=== PATIENT | female | born 1965 | race African-American/Black ===

== ENCOUNTER 2018-07-29 06:35 | Inpatient (IN) | payer MEDICARE ==
--- NOTE | 2018-07-17 10:56 | HP ---
PREOPERATIVE HISTORY AND PHYSICAL: DATE OF ADMISSION/SURGERY: 07/29/18 DATE OF OFFICE VISIT: 07/16/18 ATTENDING PHYSICIAN: Dr. Rosina Daley. CHIEF COMPLAINT: Right hip pain. HISTORY OF PRESENT ILLNESS: Ms. Alston is a 52-year-old female with greater than 3 years of hip magy n. She failed conservative management due to end-stage osteoarthritis and has elected to proceed wit h a right total hip arthroplasty scheduled with Dr. Daley on 07/29/18. PAST MEDICAL HISTORY: Significant for heart murmur, hypertension, osteoarthritis, morbid obesity, de pression, and anxiety. PAST SURGICAL HISTORY: Cholecystectomy, hysterectomy, left shoulder arthroscopy. MEDICATIONS: 1. Centrum Silver daily. 2. Vitamin D daily. 3. Menopause Formula supplement daily. 4. Amlodipine 10 mg p.o. every day. 5. Lisinopril/hydrochlorothiazide 10/12.5 mg 1 p.o. daily. 6. Temazepam 30 mg p.o. q.h.s. p.r.n. at night. 7. Calcium antacid 500 mg p.o. as needed. 8. Naproxen sodium 500 mg p.o. as needed for pain. FAMILY HISTORY: Negative. SOCIAL HISTORY: The patient lives alone. She is currently unemployed. She is on disability seconda ry to her hip pain. She does not use tobacco or recreational drugs. She ambulates with a cane. She does not use alcohol. REVIEW OF SYSTEMS: Reviewed with the patient today, positive for hip pain, fatigue, seasonal allergi es, depression, and anxiety. INCOMPLETE DICTATION MARK MCCLAIN [id number]/[facility] #: [id number]
--- NOTE | 2018-07-17 11:21 | HP ---
Amended report to enter cosigning physician. PREOPERATIVE HISTORY AND PHYSICAL EXAMINATION: DATE OF ADMISSION: 07/29/18 DATE OF OFFICE VISIT: 07/16/18 ATTENDING PHYSICIAN: Dr. Rosina Daley* (dictated by MARK Multani). PROCEDURE: Right total hip arthroplasty. CHIEF COMPLAINT: Right hip pain. HISTORY OF PRESENT ILLNESS: Ms. Alston is a 53-year-old female who reports greater than 3 years of right hip pain. She has failed conservative management and has elected to proceed with a right total hip arthroplasty. Her plain films reveal advanced osteoarthritis. PAST MEDICAL HISTORY: Significant for heart murmur, hypertension, osteoarthritis, morbid obesity, depression, anxiety. PAST SURGICAL HISTORY: Cholecystectomy and hysterectomy as well as left shoulder arthroscopy. MEDICATIONS: 1. Centrum Silver p.o. daily. 2. Vitamin D daily. 3. Menopause Formula supplement daily. 4. Amlodipine 10 mg p.o. daily. 5. Lisinopril/hydrochlorothiazide 10/12.5 mg p.o. daily. 6. Temazepam 30 mg p.o. at bedtime p.r.n. 7. Antacid calcium tablets 500 mg p.r.n. GERD. 8. Naproxen sodium 500 mg p.o. b.i.d. as needed for pain. ALLERGIES: No known drug allergies. FAMILY HISTORY: None. SOCIAL HISTORY: The patient lives alone. She is currently unemployed. She states she is on disability due to her hip pain. She denies use of tobacco or recreational drug use. She ambulates with a cane. She rarely uses alcohol. REVIEW OF SYSTEMS: A 14 systems reviewed with the patient, positive for right hip pain, fatigue, seasonal allergies, depression, anxiety. PHYSICAL EXAMINATION GENERAL: She is well developed, well nourished; in no acute distress, alert and oriented x3. VITAL SIGNS: She is 5 feet 2 inches tall, 245 pounds, pulse 72, BP 130/80. HEENT: PERRLA. NECK: Supple. LUNGS: Clear to auscultation. HEART: Regular rate and rhythm. No murmur auscultated. ABDOMEN: Nontender and nondistended. Normoactive bowel sounds x4. NEUROLOGIC: Alert and oriented x3. MUSCULOSKELETAL: Right lower extremity reveals no open lesions or abrasions. She walks with an antalgic gait favoring the right hip. She has decreased internal and external rotation of the right hip. Her dorsalis pedis pulse is 2+ , full sensation. ASSESSMENT AND PLAN: Ms. Alston is a 53-year-old female with advanced osteoarthritis of the right hip. She has failed conservative management and has elected to proceed with right total hip arthroplasty. She is scheduled for surgery with Dr. Daley on 07/29/18. Risks and benefits of the surgery were discussed at today's visit and all of her questions were answered. She will follow up in roughly 2 weeks postoperatively. MARK MCCLAIN [id number]/[facility] #: [id number] CANDY
[~2018-07-29 06:35] MED LIST: Buffered Lidocaine 1% SYRIN* 1 ML/SYRINGE INTRADERM ONE; Dexamethasone IV* 4 MG/ML 1 ML (4 MG) IV SLOW PU ONE; Famotidine IV* 10 MG/ML 2 ML (20 mg) IV ONE; Gabapentin CAP(*) 300 MG PO ONE; Lactated Ringers 1000 ML Bag* 1,000 ML IV SCH; Tranexamic Acid 1,000 MG in NS 0.9% 50 ML* (outpatient use) IV SCH; celeCOXIB CAP* 200 MG PO ONE
--- OUTSIDE RECORDS SUMMARY | 2018-07-29 06:39 | XMS REPORT | Continuity of Care Document ---
:1965 External Reference #:[id number] Author Name Kiya Cifuentesecca Care Team Providers Name Role Phone Kamron Davila MD Primary Care Physician Unavailable Payers Date Identification Numbers Payment Provider Subscriber Policy Number: MEBRJPLF [employer] Medicare Carmen Jaquez PayID: [id number] [address] [place] [address] Effective: 2017 Policy Number: [employer] Carmen Jaquez [id number] Expires: 2018 PayID: [id number] [address] [address] [place] [address] Problems Active Problems Provider Date Localized, primary osteoarthritis of the pelvic Rosina Daley M.D. Onset: region and thigh Family History Date Family Member(s) Observation Comments General No Current Problems Social History Type Date Description Comments Sex Unknown Lives With Alone Occupation Unemployed ETOH Use Drinks 1 Alcoholic Beverage Per Week Tobacco Use Start: Unknown Patient has never smoked Smoking Status Reviewed: 07/16/18 Patient has never smoked Exercise Type/Frequency Exercises sporadically Allergies, Adverse Reactions, Alerts Description No Known Drug Allergies Medications Active Medications SIG Qnty Indications Ordering Provider Date Centrum Silver 1 by mouth every Unknown Tablets day Vitamin D 1 by mouth every Unknown (Cholecalciferol) day fall/winter 400Unit Capsules Menopause Formula Unknown Tablets Amlodipine Besylate 1 by mouth every Unknown 10mg day Tablets Lisinopril-Hydrochloro 1 by mouth every Unknown thiazide day 10-12.5mg Tablets Temazepam take one capsule Unknown 30mg Capsules by mouth at bedtime as needed maximum daily dose=1 capsule Antacid Calcium Unknown Regular Strength 500mg Chewtabs Naproxen Sodium ER take one /tablet Unknown 500mg daily by mouth as Tablets ER 24HR needed for pain, if pain is severe, you may take up to 2 pills daily for 3 days as needed History Medications Hydroxyzine HCL take 1 tab by mouth 3x Unknown - 07/15/2018 50mg Tablets daily for anxiety as needed Vital Signs Date Vital Result Comment 2018 12:59pm Height 62 inches 5'2" Weight 245.00 lb Heart Rate 72 /min BP Systolic 130 mmHg BP Diastolic 80 mmHg BMI (Body Mass Index) 44.8 kg/m2 07/02/2018 1:32pm Height 62 inches 5'2" Weight 243.00 lb Heart Rate 80 /min BP Systolic 122 mmHg BP Diastolic 78 mmHg Pain Level 6 BMI (Body Mass Index) 44.4 kg/m2 06/26/2017 11:22am Height 62 inches 5'2" Weight 245.00 lb Heart Rate 78 /min BP Systolic 130 mmHg BP Diastolic 80 mmHg Respiratory Rate 16 /min Body Temperature 97.4 F Pain Level 6 BMI (Body Mass Index) 44.8 kg/m2 Results Test Date Facility Test Result H/L Range Note CBC Auto Diff 2018 [facility] White Blood 6.7 10^3/uL N 3.5-10.[address] [place] [address] [phone] Red Blood Count 4.24 10^6/uL N 3.70-4.87 Hemoglobin 12.0 g/dL N 12.0-16.0 Hematocrit 37 % N 35-47 Mean Corpuscular Volume 87 fL N 80-97 Mean Corpuscular Hemoglobin 28 pg N 27-31 Mean Corpuscular HGB Conc 33 g/dL N 31-36 Red Cell Distribution Width 15 % N 10.5-15 Platelet Count 396 10^3/uL N 150-450 Mean Platelet Volume 7.8 fL N 7.4-10.4 Abs Neutrophils 2.9 10^3/uL N 1.5-7.7 Abs Lymphocytes 3.2 10^3/uL N 1.0-4.8 Abs Monocytes 0.4 10^3/uL N 0-0.8 Abs Eosinophils 0.1 10^3/uL N 0-0.6 Abs Basophils 0.0 10^3/uL N 0-0.2 Abs Nucleated RBC 0.0 10^3/uL Granulocyte % 44.1 % Lymphocyte % 48.1 % Monocyte % 6.5 % Eosinophil % 0.8 % Basophil % 0.5 % Nucleated Red Blood Cells % 0.1 Urinalysis Profile 2018 [facility] Urine Color Yellow [address] [place] [address] [phone] Urine Appearance Cloudy Urine Specific [place] 1.020 N 1.010-1.030 Urine pH 6.0 N 5-9 Urine Urobilinogen Negative Negative Urine Ketones Negative Negative Urine Protein Negative Negative Urine Leukocytes Negative Negative Urine Blood Negative Negative Urine Nitrite Negative Negative Urine Bilirubin Negative Negative Urine Glucose Negative Negative Inr/Protime 2018 [facility] Inr 1.01 N 0.82-1.09 1 [address] [place] [address] [phone] Laboratory test 2018 [facility] Partial 31.9 seconds N 26.0-36.3 finding [address] [facility] [place] [address] PTT [phone] Comp Metabolic 2018 [facility] Sodium 141 mmol/L N 135- 145 Panel [address] [place] [address] [phone] Potassium 4.1 mmol/L N 3.5-5.0 Chloride 107 mmol/L N 101-111 Co2 Carbon Dioxide 28 mmol/L N 22-32 Anion Gap 6 mmol/L N 2-11 Glucose 91 mg/dL N 70-100 Blood Urea Nitrogen 12 mg/dL N 6-24 Creatinine 0.93 mg/dL N 0.51-0.95 BUN/Creatinine Ratio 12.9 N 8-20 Calcium 9.2 mg/dL N 8.6-10.3 Total Protein 6.8 g/dL N 6.4-8.9 Albumin 4.1 g/dL N 3.2-5.2 Globulin 2.7 g/dL N 2-4 Albumin/Globulin Ratio 1.5 N 1-3 Total Bilirubin 0.20 mg/dL N 0.2-1.0 Alkaline Phosphatase 66 U/L N 34-104 Alt 16 U/L N 7-52 Ast 16 U/L N 13-39 Egfr Non- 62.6 >60 Egfr 75.7 >60 2 Type & Screen 2018 [facility] Antibody Screen NEGATIVE [address] [place] [address] [phone] Patient Blood Type O Positive Urine Culture And 2018 [facility] Urine Culture SEE RESULT [address] [place] [address] [phone] 1 Standard intensity warfarin therapeutic range: 2.0-3.0 High intensity warfarin therapeutic range: 2.5-3.5 2 Because ethnic data is not always readily available, this report includes an eGFR for both -Americans and non- Americans. The National Kidney Disease Education Program (NKDEP) does not endorse the use of the MDRD equation for patients that are not between the ages of 18 and 70, are , have extremes of body size, muscle mass, or nutritional status, or are non- or non-. According to the National Kidney Foundation, irrespective of diagnosis, the stage of the disease is based on the level of kidney function: Stage Description GFR(mL/min/1.73 m(2)) 1 Kidney damage with normal or decreased GFR 90 2 Kidney damage with mild decrease in GFR 60-89 3 Moderate decrease in GFR 30-59 4 Severe decrease in GFR 15-29 5 Kidney failure <15 (or dialysis) 3 SEE RESULT BELOW Name: CARMEN JAQUEZ : [address]: Rosina Daley MD Acct: [id number] Unit: [id number] AGE: 53 Location: [facility] Re07/16/18 SEX: F Status: REG REF SPEC: [id number] ISAÍAS: 07/16/[address] [facility] [address]: Rosina Daley MD REQ: [id number] RECD: 07/16/18 STATUS: COMP _ SOURCE: URINE SPDESC: ORDERED: Urine Culture QUERIES: Urine Source: Clean Catch Procedure Result Reported Site Urine Culture Final 07/18/18- 0802 ML No growth of clinically significant organisms * ML - Main Lab . END OF REPORT DEPARTMENT OF PATHOLOGY, [address] [place] [address] Navin Disla M.D. Director [facility] # [id number] Encounters Type Date Location Provider Dx Diagnosis Office Visit 07/02/2018 [facility] Rosina Daley, M16.11 Unilateral primary 1:45p [facility] osteoarthritis, right hip Z68.41 Body mass index (BMI) 40.0-44.9, adult E66.01 Morbid (severe) obesity due to excess calories M25.551 Pain in right hip Office Visit 06/26/2017 Alberto Almaguer M16.11 Unilateral primary 11:00a [facility] osteoarthritis, right [facility] hip E66.01 Morbid (severe) obesity due to excess calories M25.551 Pain in right hip Plan of Treatment Future Appointment(s):08/09/2018 2:30 pm - Rosina Daley M.D. at [facility]07/29/2018 1:30 pm - Jeevan Perez PA-C at [facility]07/29/2018 1:30 pm - MARK Pennington at [facility]07/29/2018 1:30 pm - Rosina Daley M.D. at [facility]
--- OUTSIDE RECORDS SUMMARY | 2018-07-29 06:39 | XMS REPORT | Continuity of Care Document ---
:1965 External Reference #:[id number] Author Name MARK Pennington Address [address], [place] [address] Care Team Providers Name Role Phone Kamron Davila MD Primary Care Physician Unavailable Payers Date Identification Numbers Payment Provider Subscriber Policy Number: MEBRJPLF [employer] Medicare Carmen Jaquez PayID: [id number] [address] [place] [address] Effective: 2017 Policy Number: [employer] Carmen Jaquez [id number] Expires: 2018 PayID: [id number] [address] [address] [place] [address] Problems Active Problems Provider Date Localized, primary [...] H/L Range Note CBC Auto Diff 2018 [facility] White Blood 6.7 10^3/uL N 3.5-10.[address] [place] [address] [phone] Red Blood Count 4.24 10^6/uL N 3.70-4.87 [...] Blood Cells % 0.1 Urinalysis Profile 2018 [facility] Urine Color Yellow [address] [place] [address] [phone] Urine Appearance Cloudy Urine Specific [place] 1.020 N 1.010-1.030 Urine pH 6.0 N 5-9 Urine Urobilinogen Negative Negative Urine Ketones Negative Negative Urine Protein Negative Negative Urine Leukocytes Negative Negative Urine Blood Negative Negative Urine Nitrite Negative Negative Urine Bilirubin Negative Negative Urine Glucose Negative Negative Inr/Protime 2018 [facility] Inr 1.01 N 0.82-1.09 1 [address] [place] [address] [phone] Laboratory test 2018 [facility] Partial 31.9 seconds N 26.0-36.3 finding 101 [facility] [place] [address] PTT [phone] Comp Metabolic 2018 [facility] Sodium 141 mmol/L N 135- 145 Panel [address] [place] [address] [phone] Potassium 4.1 mmol/L N 3.5-5.0 Chloride 107 [...] 75.7 >60 2 Type & Screen 2018 [facility] Antibody Screen NEGATIVE [address] [place] [address] [phone] Patient Blood Type O Positive Urine Culture And 2018 [facility] Urine Culture SEE RESULT [address] [place] [address] [phone] 1 Standard intensity warfarin therapeutic range: 2.0-3.0 [...] [address]: Rosina Daley MD Acct: [id number] Unit: [id number] AGE: 53 Location: [facility] Re07/16/18 SEX: F Status: REG REF SPEC: [id number] ISAÍAS: 07/16/18 [facility] DR: Rosina Daley MD REQ: [id number] RECD: 07/16/18 STATUS: COMP _ SOURCE: URINE SPDESC: ORDERED: Urine Culture QUERIES: Urine Source: Clean Catch Procedure Result Reported Site Urine Culture Final 07/18/18- 0802 ML No growth of clinically significant organisms * ML - Main Lab . END OF REPORT DEPARTMENT OF PATHOLOGY, [address] [place] [address] Navin Disla M.D. Director [facility] # [id number] Encounters Type Date Location Provider Dx Diagnosis Office Visit 07/02/2018 [facility] Robyn Croft6.11 Unilateral primary 1:45p [facility] osteoarthritis, right hip Z68.41 Body mass index (BMI) 40.0-44.9, adult E66.01 Morbid (severe) obesity due to excess calories M25.551 Pain in right hip Office Visit 06/26/2017 [facility] Rosina M16.11 Unilateral primary 11:00a [facility] osteoarthritis, right [facility] hip E66.01 Morbid (severe) obesity due to excess calories M25.551 Pain in right hip Plan of Treatment Future Appointment(s):08/09/2018 2:30 pm - Rosina Daley M.D. at [facility]07/29/2018 1:30 pm - Jeevan Perez PA-C at [facility]..07/29/2018 1:30 pm - MARK Pennington at [facility]07/29/2018 1:30 pm - Rosina Daley M.D. at [facility]07/16/2018 - Rosina Daley M.D.M16.11 Unilateral primary osteoarthritis, right hipFollow up:Follow up: 10-14 days knrezaP71.551 Pain in right hip
--- OUTSIDE RECORDS SUMMARY | 2018-07-29 06:39 | XMS REPORT | Continuity of Care Document ---
:1965 External Reference #:[id number] Author Name Kamron Davila MD Address [address] [facility] [place] [address] Care Team Providers Name Role Phone Kamron Davila MD Care Team Information Project Design Engineer Unavailable Kamron Davila MD Primary Care Physician Unavailable Payers Date Identification Numbers Payment Provider Subscriber Effective: 2018 Policy Number: MEBRJPLF [employer] Medicare Ppo Carmen Alston Group Number: [id number] [id number] PayID: [id number] [place] [address] Effective: 2018 Policy Number: [id number] Medicare [place] Carmen Alston Expires: 2018 PayID: [id number] [address] [place] [address] Advance Directives Description No Information Available Problems Active Problems Provider Date Localized, primary osteoarthritis of the Kamron Davila MD Onset: pelvic region and thigh Family History Date Family Member(s) Observation Comments Mother No Current Problems Social History Type Date Description Comments Sex Unknown Tobacco Use Start: Unknown Nonsmoker Smoking Status Reviewed: 07/19/18 Nonsmoker Allergies, Adverse Reactions, Alerts Description No Known Drug Allergies Medications Active Medications SIG Qnty Indications Ordering Provider Date Lisinopril-Hydrochlo Take 1 Tablet By 90Tablet Kamron Wylie 07/01/2018 rothiazide Mouth Every Day MD Lola 20-25mg Tablets Potassium Chloride 1 by mouth every 90tabs Kamron Wylie 09/17/2017 ER day MD Lola 10Meq Tablets ER Amlodipine Besylate 1 by mouth every 90tabs Kamron Wylie day MD Lola 10mg Tablets Naproxen one tablet by 180tabs Kamron Wylie 500mg mouth twice a MD Lola Tablets day Temazepam 1 cap by mouth 30caps Kamron Wylie 30mg every night at MD Lola Capsules bedtime as needed Multi Vitamin once daily otc 90tabs Kamron Wylie MD Lola Tablets Vit D 5000 Iu 1 tab qd Unknown Everbloom 1 tab qd Unknown History Medications Vitamin D 2 by mouth 180tabs Kamron Wylie 02/18/2018 - 2000Unit every day MD Lola 07/19/2018 Tablets Triamcinolone apply to 80gm L20.9 Jhoana Navas, 11/20/2017 - Acetonide affected skin REGISTERED SALES ASSISTANT 07/19/2018 0.1% Cream on arms and legs twice daily as needed for up to 14 days Prednisone take one by 3tabs L20.9 Jhoana Navas, 11/20/2017 - 50mg Tablets mouth daily for REGISTERED SALES ASSISTANT 07/19/2018 3 days Ivermectin take 7 pills by 14tabs B86 Jhoana Navas, 11/20/2017 - 3mg Tablets mouth as one REGISTERED SALES ASSISTANT 07/19/2018 dose now; repeat dose in 2 weeks. Potassium Chloride 1 by mouth Kamron Wylie 09/17/2017 - Rhonda ER every day MD Lola 09/17/2017 10Meq Tablets ER Potassium Chloride 10ml by mouth 1200ml Kamron Wylie - every day MD Lola 09/17/2017 10Meq/50ML Solution Premarin 1 by mouth Unknown - 1.25mg Tablets every day 03/01/2018 Lisinopril 1 by mouth 90tabs Kamron Wylie - 20mg Tablets every day MD Lola 12/09/2017 Sudogest 1 by mouth 90tabs Kamron Wylie - 30mg Tablets q4-6hrs as MD Lola 07/19/2018 needed Vitamin D once daily. 90tabs Kamron Wylie - 4000Unit MD Lola 07/19/2018 Tablets Lisinopril-Hydrochlor 1 by mouth 90tabs Kamron Wylie - othiazide every day MD Lola 07/01/2018 20-25mg Tablets Immunizations Description No Information Available Vital Signs Date Vital Result Comment 07/19/2018 10:59am BP Systolic 150 mmHg BP Diastolic 84 mmHg Heart Rate 84 /min Body Temperature 98.6 F Respiratory Rate 16 /min Height 62.5 inches 5'2.50" Weight 247.00 lb BMI (Body Mass Index) 44.5 kg/m2 03/01/2018 2:59pm BP Systolic 128 mmHg BP Diastolic 68 mmHg Heart Rate 74 /min Body Temperature 98.1 F Respiratory Rate 18 /min Height 62 inches 5'2" Weight 257.00 lb BMI (Body Mass Index) 47.0 kg/m2 11/20/2017 10:09am Body Temperature 97.5 F Height 62 inches 5'2" Weight 242.00 lb BMI (Body Mass Index) 44.3 kg/m2 07/10/2017 12:54pm BP Systolic 142 mmHg BP Diastolic 84 mmHg Heart Rate 80 /min Body Temperature 97.9 F Height 62 inches 5'2" Weight 244.00 lb BMI (Body Mass Index) 44.6 kg/m2 06/15/2017 10:41am BP Systolic 134 mmHg BP Diastolic 78 mmHg Heart Rate 84 /min Body Temperature 97.5 F Respiratory Rate 18 /min Height 62 inches 5'2" Weight 248.38 lb BMI (Body Mass Index) 45.4 kg/m2 Results Description No Information Available Procedures Date Code Description Status 07/10/2017 99892 I & D Thrombosed External Hemorrhoid Completed Encounters Type Date Location Provider Dx Diagnosis Office Visit 03/01/2018 [facility] Office Kamron Wylie M16.11 Unilateral primary 2:40p MD Lola osteoarthritis, right hip G47.00 Insomnia, unspecified Office Visit 11/20/2017 10:00a [facility] Office Jhoana Aparicio L20.9 Atopic ALPA Navas dermatitis, unspecified B86 Scabies Office Visit 07/10/2017 1:00p 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 Office Kamron Carlson6.11 Unilateral MD Lola primary osteoarthritis, right hip Plan of Treatment 07/19/2018 - Kamron Davila MDZ01.818 Encounter for other preprocedural tmuabwtjkweE56.11 Unilateral primary osteoarthritis, right hipAllComments: Medication Management Patient Understands medications she's taking? Yes No Are there Barriers to Adherence? Yes No Has the patient been asked about herbal supplements and therapies, and OTC meds? Yes No
--- OUTSIDE RECORDS SUMMARY | 2018-07-29 06:39 | XMS REPORT | Continuity of Care Document ---
:1965 External Reference #:[id number] Author Name Latasha Arce Care Team Providers Name Role Phone Kamron Davila MD Primary Care Physician Unavailable Payers Date Identification Numbers Payment Provider Subscriber Policy Number: MEBRJPLF [employer] Medicare Carmen Alston PayID: [id number] [address] [place] [address] Effective: 2017 Policy Number: [employer] Carmen Alston [id number] Expires: 2018 PayID: [id number] [address] [address] [place] [address] Advance Directives Description No Information Available Problems [...] Patient has never smoked Smoking Status Reviewed: 07/02/18 Patient has never smoked Exercise Type/Frequency Exercises [...] Antacid Calcium Unknown Regular Strength 500mg Chewtabs Hydroxyzine HCL take 1 tab by Unknown 50mg mouth 3x daily Tablets for anxiety as needed Naproxen Sodium ER take one /tablet Unknown 500mg daily by mouth as Tablets ER 24HR needed for pain, if pain is severe, you may take up to 2 pills daily for 3 days as needed Immunizations Description No Information Available Vital Signs Date Vital Result Comment 07/02/2018 1:32pm Height 62 inches 5'2" Weight [...] BMI (Body Mass Index) 44.8 kg/m2 Results Description No Information Available Procedures Description No Information Available Encounters Type Date Location Provider Dx Diagnosis Office Visit 06/26/2017 [facility] Rosina Daley, M16.11 Unilateral primary 11:00a [facility] oste[facility], right hip E66.01 Morbid (severe) obesity due to excess calories M25.551 Pain in right hip Plan of Treatment Future Appointment(s):2018 1:00 pm - [facility] Rosina Daley M.D.M16.11 Unilateral primary osteoarthritis, right hipFollow up:Follow up: 7-10 days before luwdwclD30.01 Morbid (severe) obesity due to excess jvqbxpacQ24.551 Pain in right hip
[2018-07-29] MEDS ORDERED: ceFAZolin 2 GM PREMIX in ORs 2 GM/50 ML BAG IVPB ONE (07:02)
[2018-07-29] MEDS ORDERED: Gabapentin CAP(*) 300 MG ONE (07:04)
[2018-07-29] MEDS ORDERED: Dexamethasone IV* 4 MG/ML 1 ML (4 MG) ONE (07:04)
[2018-07-29] MEDS ORDERED: Famotidine IV* 10 MG/ML 2 ML (20 mg) ONE (07:05)
[2018-07-29] MEDS ORDERED: celeCOXIB CAP* 200 MG ONE (07:05)
[2018-07-29] MEDS ORDERED: Buffered Lidocaine 1% SYRIN* 1 ML/SYRINGE INTRADERM ONE (07:41)
[2018-07-29] MEDS ORDERED: ROPIVACAINE 5 MG/ML 30 ML BTL (0.5%) ONE (07:52)
[2018-07-29] MEDS ORDERED: fentaNYL* 50 MCG/ML 2 ML VIAL (100 MCG VIAL) ONE ×2 (07:53→12:43)
[2018-07-29] MEDS ORDERED: KETAMINE HCL* 50 MG/ML 10 ML VIAL ONE (07:54)
[2018-07-29] MEDS ORDERED: Midazolam* 1 MG/ML 5 ML VIAL (5 MG) ONE ×2 (07:54→09:16)
[2018-07-29] MEDS ORDERED: Phenylephrine 10 MG/ML VIAL* 1 ML VIAL ONE (07:54)
[2018-07-29] MEDS ORDERED: Propofol* 10 MG/ML 20 ML BTL ONE (07:54)
[2018-07-29] MEDS ORDERED: Ondansetron INJ* 2 MG/ML VIAL ONE (07:54)
[2018-07-29] MEDS ORDERED: Ropivacaine (OR use only) 2 MG/ML 10 ML ONE (07:55)
[2018-07-29] MEDS ORDERED: Bupivacaine 0.5% SDV PF* 30ML VIAL ONE (07:56)
[2018-07-29] MEDS ORDERED: Ondansetron INJ* 2 MG/ML VIAL IV PRN (10:17)
[2018-07-29] MEDS ORDERED: DiMENhydriNATE IV* 50 MG/ML VIAL IV PUSH PRN (10:17)
[2018-07-29] MEDS ORDERED: Naloxone* 0.4 MG/ML 1 ML VIAL IV PRN (10:17)
[2018-07-29] MEDS ORDERED: fentaNYL* 50 MCG/ML 2 ML VIAL (100 MCG VIAL) IV PRN (10:17)
[2018-07-29] MEDS ORDERED: HYDROmorphone INJ1* 1 MG/ML SYRINGE IV PRN (10:17)
[2018-07-29] MEDS ORDERED: EPHEDrine (Pressors)* 50 MG/ML VIAL ONE (10:32)
[2018-07-29] MEDS ORDERED: Acetaminophen IV 1GM/100ML * 100 ML ONE (11:55)
[2018-07-29] MEDS ORDERED: Bupivacaine 0.25% SDV PF* 10 ML VIAL INJ ONE (12:02)
[2018-07-29] MEDS ORDERED: Polyethylene Glycol 3350* 17 GM PACKET PO PRN (12:27)
[2018-07-29] MEDS ORDERED: Acetaminophen TAB* 325 MG PO PRN (12:27)
[2018-07-29] MEDS ORDERED: Cyclobenzaprine TAB* 10 MG PO PRN (12:27)
[2018-07-29] MEDS ORDERED: oxyCODONE/Acetamin 5/325 MG* TAB PO PRN (12:27)
[2018-07-29] MEDS ORDERED: Magnesium Hydroxide LIQ* 30 ML UDC PO PRN (12:27)
[2018-07-29] MEDS ORDERED: diPHENhydraMINE IV* 50 MG/ML 1 ml VIAL (BENADRYL) IV PRN (12:27)
[2018-07-29] MEDS ORDERED: Bisacodyl SUPP* 10 MG SUPP PR PRN (12:27)
[2018-07-29] MEDS ORDERED: Morphine INJ* 2 MG/ML 1 ML SYRINGE (TWO MG - NEW SYRINGE VERSION) IV PRN (12:27)
[2018-07-29] MEDS ORDERED: Temazepam CAP* 15 MG PO PRN (12:31)
--- NOTE | 2018-07-29 14:35 | PN ---
Progress Note - Progress Note Date of Service: 07/29/18 Note: resting comfortably in recovery, no complaints; able to dorsi flex/plantar flex , 2+ DP pulse, intact sensation
[2018-07-29] MEDS: oxyCODONE TAB* 5 MG TAB PO PRN ×2 (15:18→20:51)
--- NOTE | 2018-07-29 15:54 | OP ---
Operative Report - Blank - Operative Report Date of Operation: 07/29/18 Note: KEVIN JAQUEZ 1965 Date Of Surgery: 07/29/18 Rosina Daley MD Proofer Apprentice: Jeevan FLORES did help throughout the procedure with preparation of the hip, wound retraction, manipulation of the hip, and wound closure. Anesthesiologist: Kenyon Levine MD Anesthesia Type: Spinal Preoperative Diagnosis: Right severe degenerative osteoarthritis of the hip Postoperative Diagnosis: As above Procedure Performed: Right Total Hip Arthroplasty with additional time modifier for morbid obesity Complications: None Specimen: Femoral head and acetabular reamings sent to pathology. Hardware used: This is uncemented Sam total hip arthroplasty hardware for the femur a size 2 accolade II with 127 degree neck femoral component, for the acetabulum a size 50 D trident II tritanium cluster hole shell with one 15 mm screw, for the insert a size 32 D polyethylene trident x3 insert, and for the femoral head a size 32 + 0 ceramic V40 femoral head. Brief history/Indication: KEVIN JAQUEZ was known in clinic and had a history of severe right hip pain. She failed conservative treatment with anti- inflammatories, pain pills, intra-articular injections and physical therapy. She elected to undergo right total hip arthroplasty due to continued pain and decreased quality of life. Radiographs showed severe end stage osteoarthritis of the hip with bone on bone contact. Informed consent was obtained from the patient. She understood the risks of surgery included but were not limited to: bleeding, infection, damage to nearby structures, intraoperative fracture, nerve palsy, failure of the hardware, early loosening, stiffness or loss of motion, dislocation, leg length discrepancy, anesthesia complications, stroke, heart attack, blood clot and . She wished to proceed. Intra-Operative findings: Intraoperatively the patient was noted to have severe loss of cartilage of the acetabulum and femoral head. She had a shallow acetabulum consistent with dysplasia. Her morbid obesity did add at least 45 minutes to the operating time and increase the complexity of the surgery. Description of the Procedure: KEVIN JAQUEZ was identified in the preanesthesia unit. His/Her right hip was marked as the correct operative side. Informed consent was signed and placed in the chart. The patient was taken to the operating room and placed under anesthesia without complication. A stinson catheter was placed. The patient was placed on the peg board with all bony prominences well padded. The right lower extremity was prepped and draped in the usual sterile fashion. Preoperative time-out was made to correctly identify the patient, side and site. Appropriate intraoperative antibiotics were given within one hour of incision. A standard posterior incision was made and carried sharply down to the lateral fascia. A subcutaneous fat layer of 12 cm was encountered. A new 10 blade was used to make an incision in the fascia in line with the skin incision. A deep charnley retractor was placed. The piriformis and conjoined tendons were identified and elevated off the posterolateral femur using electrocautery. These were tagged with number 5 Ethibond. Next electrocautery was used to make a posterolateral capsular flap and this was tagged with number 5 Ethibonds. The hip was carefully dislocated. This dissection and exposure was made much more complex by the patient's morbid obesity. Lesser trochanter to the center of the femoral head was measured at 55 mm. The oscillating saw was used to make the femoral neck cut. The femoral head was carefully removed. The femur was retracted anteriorly and the acetabular retractors were placed. Long-handled knife was used to sharply remove any remaining labrum from the acetabular rim. The acetabulum was sequentially reamed up to a size 49. A bleeding subchondral bone bed was obtained. A trial liner was placed and had excellent fit and stability. A 50 D trident II tritanium cup was placed and had excellent stability with appropriate anteversion and abduction angle. A single 15 mm screw was placed for extra stability. A size 32 D polyethylene liner was impacted into the acetabular shell. The liner was checked for stability and was stable. Next attention was turned to preparation of the femoral canal. Broaching of the canal and presentation of the femur was made much more difficult due to the patient's morbid obesity. A canal finder was used to enter the proximal femur. The femoral canal was sequentially broached up to a size 2 femoral broach trial. A trial neck and 32 + 0 trial femoral head was chosen. Lesser trochanter to center of the femoral head measurement was satisfactory. The hip was reduced and taken through a range of motion. The hip was stable in all positions with good soft tissue tension and appropriate leg lengths. The hip was dislocated and all trials were removed. The final implant chosen was a accolade II size 2 with 127 degree neck. This stem was impacted into the femoral canal without difficulty. The stem was stable with appropriate anteversion. The femoral head chosen was a 32 + 0 ceramic head. The head was impacted onto the femoral neck without difficulty. The final lesser trochanter to center of the femoral head measurement was satisfactory. The hip was reduced and taken through a range of motion. The hip was stable in all positions with good soft tissue tension and appropriate leg lengths. The hip was copiously irrigated with sterile saline. The previously tagged capsule and tendons were repaired to the posterolateral femur through two trochanteric drill holes. The lateral fascia layer was closed using number 1 vicryls. The rest of the incision was closed in a layered fashion using 0 and 2-0 vicryls. The skin was closed using 3-0 monocryl suture and Dermabond. Sterile adaptic, 4x4s and paper tape was used to cover the incision. The patients anesthesia was reversed without difficulty. She was taken to the PACU in stable condition. Intended weight-bearing will be as tolerated with posterior hip precautions.
[2018-07-29] MEDS: Lactated Ringers 1000 ML Bag* 1,000 ML IV SCH ×2 (16:12→23:44)
[2018-07-29] MEDS: ceFAZolin 1 GM ADVAN(*) 1 GM in NS 0.9% 50 ML* 50 ML IVPB SCH (16:43)
[2018-07-29] MEDS: Ondansetron INJ* 2 MG/ML VIAL IV PRN (16:43)
[2018-07-29] MEDS: oxyCODONE/Acetamin 5/325 MG* TAB PO PRN ×2 (18:08→23:42)
[2018-07-29] MEDS: Docusate CAP* 100 MG PO SCH (20:46)
[2018-07-29] MEDS: Magnesium Hydroxide LIQ* 30 ML UDC PO SCH (20:47)
[2018-07-30] MEDS: oxyCODONE TAB* 5 MG TAB PO PRN ×4 (02:02→18:49)
[2018-07-30] MEDS: ceFAZolin 1 GM ADVAN(*) 1 GM in NS 0.9% 50 ML* 50 ML IVPB SCH ×2 (02:02→09:42)
[2018-07-30] MEDS: oxyCODONE/Acetamin 5/325 MG* TAB PO PRN ×4 (04:48→21:14)
[2018-07-30 06:37] LABS: Calcium 8.4 mg/dL (8.6-10.3); Potassium 4.2 mmol/L (3.5-5.0)
[2018-07-30 06:43] LABS: BUN/Creatinine Ratio 14.9 (8-20); EGFR African American 81.8 (>60); EGFR Non-African American 67.6 (>60)
[2018-07-30 06:45] LABS: Hematocrit 32 % (35-47); Hemoglobin 10.2 g/dL (12.0-16.0); Platelet Count 322 10^3/uL (150-450)
[2018-07-30] MEDS: Magnesium Hydroxide LIQ* 30 ML UDC PO SCH ×2 (09:21→21:17)
[2018-07-30] MEDS: Lisinopril TAB* 10 MG PO SCH (09:23)
[2018-07-30] MEDS: Docusate CAP* 100 MG PO SCH ×2 (09:23→21:17)
[2018-07-30] MEDS: amLODIPine TAB* 5 MG PO SCH (09:23)
[2018-07-30] MEDS: Cholecalciferol TAB* 400 UNIT PO SCH (09:23)
[2018-07-30] MEDS: Hydrochlorothiazide TAB* 25 MG PO SCH (09:23)
[2018-07-30] MEDS: Vitamin THERAPEUTIC TAB PO SCH (09:23)
[2018-07-30] MEDS: Apixaban* 2.5 MG TAB PO SCH ×2 (10:22→21:16)
--- NOTE | 2018-07-30 10:37 | PN ---
Progress Note - Progress Note Date of Service: 07/30/18 SOAP: Subjective: []Patient seen OOB in chair. Complains of some right hip pain, but tolerable. She hopes to go home with her son tomorrow. Denies SOB, CP, palpitations, dizziness. Objective: [] Vital Signs Temp 98.7 F 07/30/18 07:31 Pulse 73 07/30/18 07:31 Resp 18 07/30/18 10:24 BP 112/76 07/30/18 07:38 Pulse Ox 96 07/30/18 07:31 Intake & Output 07/29/18 07/30/18 07/30/18 18:59 06:59 18:59 Intake Total 1050 1730 Output Total 1075 600 Balance -25 1130 Weight 244 lb Intake: IV Fluids 1050 850 LR 1000 850 NS 50ML, Cefazolin 2G 50 Oral 880 Output: Urine 800 Taveras 275 600 Laboratory Results - last 24 hr 07/30/18 07/30/18 05:57 05:57 Hgb 10.2 L Hct 32 L Plt Count 322 MPV 8.0 Sodium 135 Potassium 4.2 Chloride 104 Carbon Dioxide 22 Anion Gap 9 BUN 13 Creatinine 0.87 Est GFR ( Amer) 81.8 Est GFR (Non-Af Amer) 67.6 BUN/Creatinine Ratio 14.9 Glucose 128 H Calcium 8.4 L Right hip dressings dry and intact calf NT and soft + DF right ankle sensation and circulation intact distally Assessment: []s/p right total hip arthroplasty POD #1 Plan: []PT/OT WBAT RLE Posterior hip precautions Eliquis for DVT prophylaxis Dressing change and probable discharge to son's home 07/31
[2018-07-30] MEDS: Ondansetron INJ* 2 MG/ML VIAL IV PRN ×2 (12:17→18:49)
[2018-07-31] MEDS: oxyCODONE TAB* 5 MG TAB PO PRN ×3 (00:38→13:11)
[2018-07-31] MEDS: oxyCODONE/Acetamin 5/325 MG* TAB PO PRN ×2 (03:49→09:37)
[2018-07-31 05:46] LABS: Hematocrit 29 % (35-47); Hemoglobin 9.6 g/dL (12.0-16.0); Mean Platelet Volume 7.8 fL (7.4-10.4); Platelet Count 320 10^3/uL (150-450)
[2018-07-31] MEDS: Ondansetron INJ* 2 MG/ML VIAL IV PRN (06:46)
--- NOTE | 2018-07-31 08:02 | PN ---
Progress Note - Progress Note Date of Service: 07/31/18 SOAP: Subjective: OOB to chair, no complaints, pain well controlled Objective: Laboratory Last Values Hgb 9.6 g/dL (12.0-16.0) L 07/31/18 04:53 Hct 29 % (35-47) L 07/31/18 04:53 Plt Count 320 10^3/uL (150-450) 07/31/18 04:53 MPV 7.8 fL (7.4-10.4) 07/31/18 04:53 Sodium 135 mmol/L (135-145) 07/30/18 05:57 Potassium 4.2 mmol/L (3.5-5.0) 07/30/18 05:57 Chloride 104 mmol/L (101-111) 07/30/18 05:57 Carbon Dioxide 22 mmol/L (22-32) 07/30/18 05:57 Anion Gap 9 mmol/L (2-11) 07/30/18 05:57 BUN 13 mg/dL (6-24) 07/30/18 05:57 Creatinine 0.87 mg/dL (0.51-0.95) 07/30/18 05:57 Est GFR ( Amer) 81.8 (>60) 07/30/18 05:57 Est GFR (Non-Af Amer) 67.6 (>60) 07/30/18 05:57 BUN/Creatinine Ratio 14.9 (8-20) 07/30/18 05:57 Glucose 128 mg/dL (70-100) H 07/30/18 05:57 Calcium 8.4 mg/dL (8.6-10.3) L 07/30/18 05:57 Vital Signs Temp Pulse Resp BP Pulse Ox 98 F 76 17 128/55 97 07/31/18 07:27 07/31/18 07:27 07/31/18 07:27 07/31/18 07:27 07/31/18 07:27 incision: c/d; dressing changed PE: able to dorsi flex/plantar flex, 2+DP pulse and intact sensation Assessment: s/p right LAWRENCE; POD #2 Plan: 1) PT/OT- WBAT with hip precautions 2) Eliquis BID for DVT prophylaxis 3) Home today; F/U with Edi in 2 weeks
[2018-07-31] MEDS: amLODIPine TAB* 5 MG PO SCH (09:33)
[2018-07-31] MEDS: Apixaban* 2.5 MG TAB PO SCH (09:33)
[2018-07-31] MEDS: Docusate CAP* 100 MG PO SCH (09:34)
[2018-07-31] MEDS: Cholecalciferol TAB* 400 UNIT PO SCH (09:34)
[2018-07-31] MEDS: Lisinopril TAB* 10 MG PO SCH (09:36)
[2018-07-31] MEDS: Hydrochlorothiazide TAB* 25 MG PO SCH (09:36)
[2018-07-31] MEDS: Magnesium Hydroxide LIQ* 30 ML UDC PO SCH (09:37)
[2018-07-31] MEDS: Vitamin THERAPEUTIC TAB PO SCH (09:37)
--- NOTE | 2018-07-31 10:39 | DS ---
Amended report to enter cosigning physician. DISCHARGE SUMMARY: DATE OF ADMISSION: 07/29/18 DATE OF DISCHARGE: 07/31/18 SURGEON: Rosina Daley MD* (dictated by MARK Jenkins). PRINCIPAL DIAGNOSIS: Severe end-stage osteoarthritis of the right hip. DISCHARGE DIAGNOSIS: Severe end-stage osteoarthritis of the right hip. DISCHARGE DISPOSITION: Discharged home in stable condition. HISTORY OF PRESENT ILLNESS: Ms. Alston is a 53-year-old female with end-stage osteoarthritis of her right hip. She has failed conservative treatment and elected to proceed with a right total hip arthroplasty. HOSPITAL COURSE: Ms. Alston was admitted electively to the hospital on and underwent a right total hip arthroplasty. She tolerated the procedure well without complications. Postoperatively, she was placed on Eliquis twice a day for DVT prophylaxis. On postop day #1, her H and H was 10 and 32, on postoperative day #2 9.6 and 29. Her hospital course was unremarkable. She made improvements with physical therapy daily and at the time of discharge she was afebrile and her vital signs were stable. PHYSICAL EXAM UPON DISCHARGE: She was afebrile. Vital signs were stable. Her wound was clean and dry. She was able to dorsiflex and plantarflex, had a 2+ dorsalis pedis pulse, intact sensation. She was ambulating with a walker. DISCHARGE MEDICATIONS: 1. Percocet 5/325 1 to 2 tabs every 4 to 6 hours as needed for pain. 2. Colace 100 mg 2 to 3 tabs daily for constipation. 3. Eliquis 2.5 mg twice a day for 30 days. 4. Norvasc 10 mg a day. 5. Vitamin D. 6. Hydrochlorothiazide 12.5 mg a day. 7. Lisinopril 10 mg a day. 8. Restoril 30 mg q.h.s. DISCHARGE INSTRUCTIONS: She was discharged home. She was given Percocet for pain. She was asked to take Eliquis twice a day for 30 days for DVT prophylaxis. Her dressing was changed prior to discharge and she will keep that dressing on until Thursday, starting Thursday she can shower letting soap and water run over the incision, do not submerge in water, no pools, baths or hot tubs and we will have her follow up with Dr. Daley in clinic in 2 weeks. MARK JENKINS [id number]/[facility] #: [id number] [facility]
[2018-07-31 11:11] VITALS: BP 142/52
== END 2018-07-31 13:30 | disposition home health service (06) | DRG 470 ==
LOC: AA 06:35 → SSU 12:29
PROVIDERS: ADMIT Orthopaedic Surgery Adult Reconstructive Orthopaedic Surgery; ATTEND Orthopaedic Surgery Adult Reconstructive Orthopaedic Surgery
PROC: 0SR904A Replacement of Right Hip Joint with Ceramic on Polyethylene Synthetic Substitute, Uncemented, Open Approach (ICD-10-PCS; principal; 2018-07-29 09:00)
DX: M16.11 Unilateral primary osteoarthritis, right hip (principal); Z68.41 Body mass index [BMI] 40.0-44.9, adult; I10 Essential (primary) hypertension; E66.01 Morbid (severe) obesity due to excess calories; F32.9 Major depressive disorder, single episode, unspecified; J30.2 Other seasonal allergic rhinitis; F41.9 Anxiety disorder, unspecified; Z90.49 Acquired absence of other specified parts of digestive tract; Z56.0 Unemployment, unspecified
CPT/HCPCS: 36415; 72170; 80048; 85014; 85018; 85049; A9270-GY; G8987-GO-CI; G8988-GO-CH; G8989-GO-CI; J0690; J1100; J2250; J2405; J2704; J2795; J3010; J3490